=== PATIENT | male | born 1955 | race Caucasian/White ===

== ENCOUNTER 2022-05-20 18:08 | Emergency (ER) | payer OTHER, MEDICAID ==
[~2022-05-20] VITALS: Ht 182.9 cm; Wt 75.0 kg
[~2022-05-20 18:08] MED LIST: ESOM40CA39 PO; HYDR-4833; INSULIN NPH SC; [UNRECOGNIZED DRUG - CODE] PO
[2022-05-20 19:10] LABS: Basophils # (auto) 0 10 ^3/uL (0-0.2); Basophils % (auto) 0.5 % (0.0-2.0); Eosinophils # (auto) 0.1 10 ^3/uL (0-0.8); Eosinophils % (auto) 0.8 % (0.0-7.0); Hemoglobin 13.1 g/dL (13.5-17.5); Lymphocytes # (auto) 2.5 10 ^3/uL (0.4-5.4); Mean Corpuscular Hemoglobin 33.3 pg (28.0-32.0); Mean Corpuscular Hgb Conc. 34.5 g/dL (32.0-36.0); Mean Corpuscular Volume 96.5 fL (80.0-100.0); Monocytes # (auto) 0.8 10 ^3/uL (0-1.3); Monocytes % (auto) 9.2 % (0.0-12.0); Neutrophils # (auto) 4.9 10 ^3/uL (1.6-8.6); Neutrophils % (auto) 59.5 % (37.0-80.0); Nucleated Red Blood Cells % 0.1 %; Red Blood Cells 3.93 10^6/uL (4.5-5.90); Red Cell Distribution Width 13.5 % (11.8-14.3); White Blood Cell 8.2 10^3/uL (4.4-10.8)
[2022-05-20 19:46] LABS: BUN/Creatinine Ratio 24.5; Bilirubin, Total 0.3 mg/dL (0.2-1.0); Calcium 8.8 mg/dL (8.5-10.1); Potassium 4.3 mmol/L (3.5-5.1); Total Protein 7.4 g/dL (6.4-8.2)
[2022-05-20] MEDS ORDERED: VANCOMYCIN 1GM/250ML 250 ML IV ONE (20:45)
[2022-05-21] MEDS ORDERED: InsuLIN REG 1unit/0.01ml Soln (100units/ml) SC ONE (05:45)
[2022-05-21 09:50] VITALS: BP 126/79
== END 2022-05-21 10:17 | disposition short-term general hospital (02) ==
LOC: ER 18:08
DX: L03.114 Cellulitis of left upper limb (principal); M86.9 Osteomyelitis, unspecified; Z20.822 Contact with and (suspected) exposure to COVID-19
CPT/HCPCS: 36415; 73200; 80053; 83605; 85025; 85652; 86141; 87426; 96365; 96372; 99285; J1815; J3370

== ENCOUNTER 2022-07-13 15:41 | Emergency (ER) | payer OTHER, MEDICAID ==
[~2022-07-13] VITALS: Ht 182.9 cm; Wt 75.0 kg
[2022-07-13 15:55] VITALS: BP 112/60
[2022-07-13] MEDS ORDERED: CEPH-510 PO (17:13)
[2022-07-13] MEDS ORDERED: NEOMYCIN-BACITRACIN-POLYM UNITDOSE PKG TOP OINT TOP ONE (17:15)
[2022-07-13] MEDS ORDERED: ACET1CAP14 PO (17:17)
== END 2022-07-13 17:34 | disposition home or self-care (01) ==
LOC: ER 15:41
DX: S62.633A Displaced fracture of distal phalanx of left middle finger, initial encounter for closed fracture (principal); E11.9 Type 2 diabetes mellitus without complications; I10 Essential (primary) hypertension; X58.XXXA Exposure to other specified factors, initial encounter; Y93.89 Activity, other specified; Y92.89 Other specified places as the place of occurrence of the external cause; Y99.8 Other external cause status
CPT/HCPCS: 73130